=== PATIENT | male | born 1955 | race Caucasian/White ===

== ENCOUNTER 2025-04-11 21:08 | Emergency (ER) | payer MEDICARE, BC ==
[~2025-04-11] VITALS: Ht 167.6 cm; Wt 77.1 kg
[2025-04-11] MEDS: MORPHINE SULFATE INJ 2 MG/ML DISP.SYRIN IV ONE (23:21)
[2025-04-11] MEDS: ONDANSETRON HCL/PF - ER 4 MG/2 ML VIAL IV ONE (23:21)
[2025-04-11] MEDS ORDERED: MORPHINE SULFATE INJ 4 MG/ML DISP.SYRIN ONE (23:23)
[2025-04-11] MEDS ORDERED: TETRAcaine 5 ML BOTTLE ONE (23:23)
[2025-04-11] MEDS ORDERED: FLUORESCEIN SODIUM OPHTH 1 EA STRIP ONE (23:23)
[2025-04-11] MEDS ORDERED: ONDANSETRON HCL/PF 4 MG/2 ML VIAL ONE (23:23)
[2025-04-11 23:34] LABS: PLATELET COUNT (AUTO) 135 K/uL (150-450); RED BLOOD CELL COUNT(AUTO) 3.30 MIL/uL (4.5-6.0); RED CELL DISTRIBUTION WIDTH 13.0 % (11.5-15.0); WHITE BLOOD COUNT (AUTO) 6.4 K/uL (4.3-11.0)
[2025-04-11 23:43] LABS: CALCIUM, SERUM 9.3 mg/dL (8.5-10.1); CREATININE 1.3 mg/dL (0.6-1.3); SODIUM SERUM 140.0 mmol/L (136-145); UREA NITROGEN, BLOOD 26.0 mg/dL (7-18)
[2025-04-11 23:57] LABS: ASPARTATE AMINOTRANSFERASE 40.0 U/L (15-37); TOTAL PROTEIN, SERUM 7.2 g/dL (6.4-8.2)
[2025-04-11] MEDS: FLUORESCEIN SODIUM OPHTH 1 EA STRIP OP ONE (23:57)
[2025-04-11] MEDS: TETRACAINE HCL 0.5% OPHTALMIC 15 ML BOTTLE OP ONE (23:57)
[2025-04-12] MEDS ORDERED: ONDANSETRON HCL/PF 4 MG/2 ML VIAL ONE (00:46)
[2025-04-12] MEDS ORDERED: MORPHINE SULFATE INJ 4 MG/ML DISP.SYRIN ONE (00:46)
[2025-04-12] MEDS ORDERED: CIPR5DRO18 EACHEYE (00:46)
[2025-04-12] MEDS: MORPHINE SULFATE INJ 2 MG/ML DISP.SYRIN IV ONE (00:53)
[2025-04-12] MEDS: ONDANSETRON HCL/PF - ER 4 MG/2 ML VIAL IV ONE (00:53)
[2025-04-12 01:08] VITALS: BP 125/89; TEMP 98; O2SAT 98
== END 2025-04-12 01:08 | disposition home or self-care (01) ==
LOC: ER 21:28
DX: T26.82XA Corrosions of other specified parts of left eye and adnexa, initial encounter (principal); T26.81XA Corrosions of other specified parts of right eye and adnexa, initial encounter; I11.9 Hypertensive heart disease without heart failure; Y93.89 Activity, other specified; Y92.89 Other specified places as the place of occurrence of the external cause; Y99.8 Other external cause status
CPT/HCPCS: 99284; 96374; 96375; 85025; 36415; 80053; 96376; J2270 ×2; J2405 ×4; A4217